=== PATIENT | female | born 1980 | race Caucasian/White ===

== ENCOUNTER 2022-04-19 04:04 | Day surgery (SDC) | payer OTHER ==
[2022-04-17 15:17] VITALS: BMI 25.7
[2022-04-19 09:22] VITALS: RESP 18
[2022-04-19 11:39] VITALS: BP 128/82; PULSE 67
[2022-04-19 14:03] VITALS: TEMP 97
== END 2022-04-19 12:15 | disposition home or self-care (01) ==
LOC: JASU-ENDO 04:04
PROVIDERS: ATTEND Internal Medicine Gastroenterology
PROC: 0DB78ZX Excision of Stomach, Pylorus, Via Natural or Artificial Opening Endoscopic, Diagnostic (ICD-10-PCS; 2022-04-19)
PROC: 0DB68ZX Excision of Stomach, Via Natural or Artificial Opening Endoscopic, Diagnostic (ICD-10-PCS; 2022-04-19)
PROC: 0DB98ZX Excision of Duodenum, Via Natural or Artificial Opening Endoscopic, Diagnostic (ICD-10-PCS; principal; 2022-04-19 10:00)
DX: K29.40 Chronic atrophic gastritis without bleeding (principal); K31.7 Polyp of stomach and duodenum; D51.9 Vitamin B12 deficiency anemia, unspecified
CPT/HCPCS: 81025; 88305-TC; 88342-TC